=== PATIENT | male | born 1935 | race Caucasian/White ===

== ENCOUNTER 2016-05-20 22:41 | Inpatient (IN) ==
[~2016-05-20 22:41] MED LIST: Prochlorperazine 10 MG/2 ML VIAL IVP ONE
[2016-05-20] MEDS ORDERED: 0.9 % Sodium Chloride 1,000 ML IVC ONE (22:54)
[2016-05-20 23:24] LABS: Basophils % 0.1 %; Eosinophils % 0.1 %; Hematocrit 38.3 % (37.5-50.1); Immature Granulocytes % 0.7 % (0-4); Lymphocytes # 0.4 K/mcL (0.6-4.6); Mean Corpuscular HGB Conc 33.9 g/dL (31.6-35.5); Mean Corpuscular Hemoglobin 28.6 pg (28.0-33.3); Mean Corpuscular Volume 84.4 fL (83.0-100.0); Mean Platelet Volume 9.4 fL (9.4-12.4); Monocytes # 0.6 K/mcL (0.0-1.3); Monocytes % 7.3 %; Neutrophils # 7.3 K/mcL (1.6-8.9); Platelet Count 177 K/mcL (140-400); Red Blood Count 4.54 M/mcL (4.19-5.50); Red Cell Distribution Width 14.6 % (11.5-14.5); Segmented Neutrophils % 86.8 %
[2016-05-20 23:38] LABS: Calcium 9.9 mg/dL (8.6-10.8); Potassium 4.1 mEq/L (3.5-4.5)
--- NOTE | 2016-05-20 23:52 | Emergency Department Note ---
Disposition Clinical Impression: Drug-induced nausea and vomiting, Colon adenocarcinoma Disposition: Admitted As Inpatient Condition: Fair Time of Disposition: 02:26 Nausea/Vomiting/Diarrhea HPI - General Chief complaint: ED Nausea/Vomiting/Diarrhea Stated complaint: reaction to chemo Time Seen by Provider: 05/20/16 22:53 Source: patient Limitations: no limitations Nursing Notes Reviewed: Yes Vital Signs Reviewed: Yes - History of Present Illness Pt Subjective Complaint: nausea, vomiting Onset (ago): hour(s) Associated Abdominal Pain: No Consistency: constant Improves with: nothing Worsens with: nonthing Context: other (chemo treatment today h/o colon cancer) Associated symptoms: Reports: fever/chills, loss of appetite. Denies: cough, diaphoresis - Related Data Home Medications Medication Instructions Recorded Confirmed Amlodipine Besylate 10 mg PO DAILY 01/08/16 04/29/16 Atenolol [Tenormin] 25 mg PO DAILY 01/08/16 04/29/16 Furosemide [Lasix] 20 mg PO DAILY 01/08/16 04/29/16 Hydrochlorothiazide 25 mg PO DAILY 01/08/16 04/29/16 Lisinopril [Zestril] 20 mg PO DAILY 01/08/16 04/29/16 Aspirin 81 mg PO DAILY 03/26/16 04/29/16 Psyllium Husk/Calcium Carb 2 each PO DAILY 03/26/16 04/29/16 [Metamucil Plus Calcium Capsule] Rosuvastatin Calcium [Crestor] 10 mg PO DAILY 03/26/16 04/29/16 Ubidecarenone [Co Q-10] 100 mg PO DAILY 03/26/16 04/29/16 Previous Rx's Medication Instructions Recorded Docusate [Colace] 100 mg PO BID #30 capsule 04/01/16 Loperamide [Imodium] 2 mg PO Q4HR PRN #90 capsule 04/22/16 Ondansetron HCl [Zofran] 4 mg PO BID #60 tablet 04/22/16 Prochlorperazine Maleate 10 mg PO Q8HR PRN #90 tablet 04/22/16 [Compazine] Lidocaine/Prilocaine CREAM [Emla] 1 gm TP AD PRN #1 tube 04/29/16 Magic Mouthwash [Magic Mouthwash 10 ml PO QID PRN #240 ml 05/06/16 BLM] Lactulose 10 gm PO DAILY PRN #200 mls 05/13/16 Allergies Allergy/AdvReac Type Severity Reaction Status Date / Time simvastatin AdvReac Muscle Pain Verified 03/26/16 07:52 All systems ED: reviewed and negative except as stated. Constitutional: Reports: fever. Denies: chills Eyes: Denies: eye pain ENT ED: Denies: ear pain, throat pain Cardiovascular: Denies: chest pain, palpitations, dyspnea on exertion Respiratory: Denies: dyspnea Gastrointestinal: Reports: as per HPI. Denies: abdominal pain, diarrhea Genitourinary: Denies: dysuria Musculoskeletal: Denies: back pain Neurological: Denies: headache Psychiatric: Denies: anxiety Endocrine: Denies: fatigue Hematological/Lymphatic: Denies: easy bleeding Allergic/Immunologic: Denies: facial swelling Past Medical History - Past Medical History Medical history: Reports: cancer, hyperlipidemia, hypertension, other Surgical history: Reports: cancer surgery Psychiatric history: Reports: no psych history - Social History Smoking Status: Never smoker Smokeless Tobacco Status: No Alcohol use: Reports: none Drug use: Reports: none Physical Exam - General Limitations: no limitations General appearance: alert, in no apparent distress - Head Head exam: normocephalic - Eye Eye exam: Present: normal appearance, EOMI - ENT ENT exam: mucous membranes moist - Neck Neck exam: Present: normal inspection, full ROM - Chest Chest inspection: Present: normal inspection, symmetric chest wall rise - Respiratory Respiratory exam: Absent: respiratory distress - Cardiovascular Cardiovascular exam: Present: tachycardia - Abdominal Exam Abdominal exam: Present: soft, Non-Tender - Extremities Exam Extremities exam: Present: normal inspection, full ROM, normal capillary refill. Absent: tenderness - Back Exam Back exam: Present: full ROM - Neurological Exam Neurological exam: Present: alert, oriented X3 - Psychiatric Psychiatric exam: Present: normal affect, normal mood - Skin Skin exam: Present: warm, dry, intact, normal color. Absent: rash, cyanosis, diaphoresis Course Course Narrative: 81-year-old male with known history of colon cancer presents from home with reported fever, nausea, vomiting. He mentions he had received his second round of chemotherapy earlier today. He mentions he has not been feeling well since that time. No relief from his Zofran and other antinausea medications. He denies any chest pain, shortness of breath, abdominal pain. Vision seen and examined. He is in no acute distress does not look toxic. Workup initiated. Fluids and anti-medics ordered. - Reevaluation(s) Reevaluation #1: On reexamination patient states that his nausea has improved. Fluids ordered. Reevaluation #2: Discussed patient with hospitalist Dr. Reis, he agreed to accept patient. He also requested PCR influenza, and recommended vancomycin and Zosyn dosage. Time: 23:54 Vital Signs Temperature 100.6 F H 05/20/16 22:42 Pulse Rate 117 05/20/16 22:42 Respiratory Rate 20 05/20/16 22:42 Blood Pressure 160/69 05/20/16 22:42 O2 Sat by Pulse Oximetry 97 05/20/16 22:42 Temperature 98.8 F 05/21/16 04:10 Pulse Rate 87 05/21/16 04:10 Respiratory Rate 18 05/21/16 04:10 Blood Pressure 99/61 05/21/16 04:10 O2 Sat by Pulse Oximetry 93 L 05/21/16 04:10 Oxygen Delivery Oxygen Delivery Room Air Nausea/Vomiting/Diarrhea - MDM Narrative Medical decision making narrative: 81-year-old male with known history of colon cancer presents to the emergency department with fever and nausea and vomiting. He had received his second round of chemotherapy earlier today and stated his nausea and vomiting have not improved. On examination is initially uncomfortable, slightly tachycardic, denies any abdominal tenderness or diarrhea. Patient's symptoms did improve after fluids and antiemetics. Workup showed some decreased renal function, elevated lactic acid. Patient was discussed with attending Dr. Swanson, and agreed for decision to admit due to fever, chemotherapy, history of cancer. Patient accepted by hospitalist. - Medical Records Medical records reviewed: Yes I reviewed the patient's medical records. - Lab Data Lab results reviewed: Yes I reviewed the patient's lab results. Result diagrams: 05/21/16 04:45 05/21/16 04:45 Lab Results 05/20/16 05/20/16 05/20/16 Range/Units 23:16 23:16 23:16 WBC 8.4 (4.3-11.1) K/mcL RBC 4.54 (4.19-5.50) M/mcL Hgb 13.0 (12.9-16.9) g/dL Hct 38.3 (37.5-50.1) % MCV 84.4 (83.0-100.0) fL MCH 28.6 (28.0-33.3) pg MCHC 33.9 (31.6-35.5) g/dL RDW 14.6 H (11.5-14.5) % Plt Count 177 (140-400) K/mcL MPV 9.4 (9.4-12.4) fL Immature Gran % 0.7 (0-4) % Seg Neutrophils % 86.8 % Lymphocytes % 5.0 % Monocytes % 7.3 % Eosinophils % 0.1 % Basophils % 0.1 % Neutrophils # 7.3 (1.6-8.9) K/mcL Lymphocytes # 0.4 L (0.6-4.6) K/mcL Monocytes # 0.6 (0.0-1.3) K/mcL Eosinophils # 0.0 (0.0-0.6) K/mcL Basophils # 0.0 (0.0-0.2) K/mcL Sodium 134 L (136-145) mEq/L Potassium 4.1 (3.5-4.5) mEq/L Chloride 102 (98-109) mEq/L Carbon Dioxide 17 L (19-29) mEq/L BUN 31 H (8-26) mg/dL Creatinine 1.63 H (0.72-1.25) mg/dL Est GFR ( Amer) 50 L (> 60) Est GFR (Non-Af Amer) 41 L (> 60) BUN/Creatinine Ratio 19 (6-26) Glucose 144 H (70-99) mg/dL Calculated Osmolality 287 (280-300) Lactic Acid 3.4 H (0.5-2.2) mmol/L Calcium 9.9 (8.6-10.8) mg/dL Troponin I (0-0.03) ng/mL 05/20/16 Range/Units 23:16 WBC (4.3-11.1) K/mcL RBC (4.19-5.50) M/mcL Hgb (12.9-16.9) g/dL Hct (37.5-50.1) % MCV (83.0-100.0) fL MCH (28.0-33.3) pg MCHC (31.6-35.5) g/dL RDW (11.5-14.5) % Plt Count (140-400) K/mcL MPV (9.4-12.4) fL Immature Gran % (0-4) % Seg Neutrophils % % Lymphocytes % % Monocytes % % Eosinophils % % Basophils % % Neutrophils # (1.6-8.9) K/mcL Lymphocytes # (0.6-4.6) K/mcL Monocytes # (0.0-1.3) K/mcL Eosinophils # (0.0-0.6) K/mcL Basophils # (0.0-0.2) K/mcL Sodium (136-145) mEq/L Potassium (3.5-4.5) mEq/L Chloride (98-109) mEq/L Carbon Dioxide (19-29) mEq/L BUN (8-26) mg/dL Creatinine (0.72-1.25) mg/dL Est GFR ( Amer) (> 60) Est GFR (Non-Af Amer) (> 60) BUN/Creatinine Ratio (6-26) Glucose (70-99) mg/dL Calculated Osmolality (280-300) Lactic Acid (0.5-2.2) mmol/L Calcium (8.6-10.8) mg/dL Troponin I 0.00 (0-0.03) ng/mL Attestation Statement - Attestation Attestation: I, Eagle Swanson MD, personally performed a history and physical exam of the patient and discussed their management with the midlevel provicer, PAC/ARMORED MACHINE OPERATOR. I reviewed the midlevel provider's note and agree with the documented findings, medical decision making, and plan of care. 81-year-old male presents to the emergency department with a complaint of fever and nausea and vomiting and generalized weakness. Patient has a history of colon cancer and received chemotherapy earlier today. Since then he has had multiple episodes of vomiting. He states his temp at home was 103. He complains of some constipation which is a chronic problem. On examination patient is a well-developed obese elderly male in no acute distress. He is alert and oriented 3. There is no cyanosis or diaphoresis. Breath sounds are decreased but clear and equal bilaterally. Heart regular without tachycardia. Abdomen is soft with mild diffuse tenderness, worse in the right abdomen. Bowel sounds present. Labs reviewed. EKG shows a sinus tachycardia with a heart rate of 101, otherwise no acute changes. Chest x-ray negative. The hospitalist, Dr. Reis, was consulted and accepted admission of the patient.
[2016-05-20] MEDS ORDERED: Ondansetron 4 MG/2 ML VIAL IVP ONE (23:53)
[2016-05-20] MEDS ORDERED: Famotidine 20 MG/2 ML VIAL IVP ONE (23:59)
[2016-05-21] MEDS ORDERED: Piperacillin/Tazobactam 3.375 GM in D5% in Water (Mini-Bag+) 100 ML IVPB ONE (01:51)
[2016-05-21 03:05] LABS: Bilirubin,Urine Negative (Negative); Blood,Urine Negative (Negative); Clarity,Urine Clear (Clear); Color,Urine Yellow (Yellow); Glucose,Urine (UA) Normal (Normal); Ketones,Urine Negative (Negative); Leukocyte Esterase,Urine Negative (Negative); Nitrite,Urine Negative (Negative); PH,Urine 5.5 pH Units (5.0-8.0); Protein,Urine Negative (Neg-Trace); Specific Gravity,Urine 1.025 (1.010-1.025); Urobilinogen,Urine Normal (Normal)
--- NOTE | 2016-05-21 03:11 | Internal Med History&Physical ---
<Carina Morillo Grace - Last Filed: 05/21/16 05:26> Date of Encounter: 05/21/16 Time of Encounter: 03:01 Assessment and Plan (1) Chemotherapy induced nausea and vomiting Status: Acute Aggressive IVF hydration for treatment of dehydration Scopalamine TD Compazine, Zofran prn Hold Lasix (2) Fever of unknown origin (FUO) Status: Acute Lactic acid 3.4 ABG, pending WBC 8.4 Subjective fever of 103.5 at home yesterday afternoon, 100.6 in ED Rule out sepsis versus chemotherapy-induced fever -CXR no acute process -UA negative for infection -Blood cultures, pending Begin Vanc and Zosyn CT chest, abdomen, pelvis, pending (3) Acute renal failure Status: Acute Cr 1.63 at 23:00 increased from 1.48 at 09:30 Likely hemoconcentration due to nausea/vomiting-induced dehydration Continue to trend renal function Qualifiers: Acute renal failure type: unspecified Qualified Code(s): N17.9 - Acute kidney failure, unspecified (4) Dehydration Status: Acute Continue aggressive IVF Hold Lasix Anti-emetics prn (5) Constipation Status: Acute Continue home medication Qualifiers: Constipation type: unspecified constipation type Qualified Code(s): K59.00 - Constipation, unspecified (6) DVT prophylaxis Status: Acute Lovenox 40u SQ Internal Medicine - H&P: HPI Chief complaint: post-chemotherapy fever, tachycardia, nausea, vomiting Admitted From: Emergency Dept Plans for Post Hospital Care: Home History of present illness: Mr. Strauss is a 81 year old male who comes to hospital today accompanied by his with complaints of fever, chills, nausea, and vomiting. Patient states that he began feeling nauseated while receiving chemotherapy yesterday morning. When he returned home following infusion, he had 3 episodes of non- bilious vomiting. He later had 4-5 episodes of dry heaving. Patient tried compazine without relief of symptoms. He measured his temperature at 100.4 initially, but it continued to climb to 103.5. He had an episode of chills in which he put on multiple layers of clothing. He felt dizzy, weak, and had generalized malaise. He states that he would have fallen had it not been for his who was there to stabilize him. Admits dry mouth. Admits inability produce urine at this time. Admits 2 episodes of urinary incontinence, he explains, that were due to fact that he could not disrobe in time. Admits dysuria, frequency, strong stream, episodes of oligouria, nocturia x 4 times per night. Admits cough today productive of unknown color of phlegm. Admits constipation. Denies diaphoresis, hematemesis, chest pain, racing heart, palpitations, dyspnea , hematuria, muscle aches. Past Med Surg Social Fam HX - Past Medical History Medical history: cancer, hyperlipidemia, hypertension, other Psychiatric history: no psych history - Past Surgical History Surgical History: colectomy (Left hemicolectomy for colon cancer) - Social History Smoking Status: Never smoker Smokeless Tobacco Status: No Alcohol use: none Drug use: none - Family History Brother Hx Family Endocrine Disorder: Yes (DM) Internal Medicine - H&P: Meds Amlodipine Besylate 10 mg PO DAILY 01/08/16 [History] Atenolol [Tenormin] 25 mg PO DAILY 01/08/16 [History] Furosemide [Lasix] 20 mg PO DAILY 01/08/16 [History] Hydrochlorothiazide 25 mg PO DAILY 01/08/16 [History] Lisinopril [Zestril] 20 mg PO DAILY 01/08/16 [History] Rosuvastatin Calcium [Crestor] 10 mg PO DAILY 03/26/16 [History] Docusate [Colace] 100 mg PO BID #30 capsule 04/01/16 [Rx] Loperamide [Imodium] 2 mg PO Q4HR PRN #90 capsule 04/22/16 [Rx] Ondansetron HCl [Zofran] 4 mg PO BID #60 tablet 04/22/16 [Rx] Prochlorperazine Maleate [Compazine] 10 mg PO Q8HR PRN #90 tablet 04/22/16 [Rx] Lidocaine/Prilocaine CREAM [Emla] 1 gm TP AD PRN #1 tube 04/29/16 [Rx] Magic Mouthwash [Magic Mouthwash BLM] 10 ml PO QID PRN #240 ml 05/06/16 [Rx] Lactulose 10 gm PO DAILY PRN #200 mls 05/13/16 [Rx] Allergies atorvastatin [From Lipitor] Adverse Reaction (Verified 05/21/16 07:30) Muscle Pain simvastatin Adverse Reaction (Verified 03/26/16 07:52) Muscle Pain All Systems PM: A 10-system review of systems was performed and is negative for pertinent findings except as documented above in the HPI. - Constitutional Constitutional: chills, fatigue, fever(s), malaise, weakness - EENT Nose, mouth and throat: dry mouth, nasal congestion - Cardiovascular Cardiovascular ROS IM: no chest pain, no diaphoresis - Respiratory Respiratory: cough, no dyspnea - Gastrointestinal Gastrointestinal: abdominal pain (tenderness in LLQ), constipation (painful- described as hickory nut-sized stools connected together), nausea, vomiting, no hematemesis - Genitourinary Genitourinary ROS male: difficulty urinating, dysuria, nocturia, urinary incontinence, urinary urgency, no hematuria - Musculoskeletal Musculoskeletal ROS IM: back pain (chronic-he sleeps in lift chair at night to alleviate back pain), no myalgias - Constitutional Vitals: Temp Pulse Resp BP Pulse Ox 100.6 F H 117 20 160/69 97 05/20/16 22:42 05/20/16 22:42 05/20/16 22:42 05/20/16 22:42 05/20/16 22:42 General appearance: Present: cooperative, mild distress, A&O X 3, pleasant, answers questions appropriately - Head Head exam: Present: atraumatic, normal inspection, normocephalic - Eye Eye exam: Present: conjunctival injection, EOMI - Neck Neck exam general surgery: Present: full ROM - Respiratory Respiratory exam: Present: CTAB. Absent: rhonchi, wheezes - Cardiovascular Cardiovascular exam: Present: distant heart sounds, +S1, +S2, tachycardia ( regular rate) - GI/Abdominal GI/Abdominal exam: Present: normal bowel sounds, soft, tenderness (palpation RUQ ). Absent: guarding, hepatomegaly, rebound, splenomegaly, no peritoneal signs Additional comments: Sutton healing scar to mid-line abdomen (left hemicolectomy) - Extremities Exam Extremities exam: Present: normal capillary refill, normal inspection, pedal edema (1+ bilaterally), warm, radial pulses palpable and symetrical (bounding pulses bilaterally) - Neurological Exam Neurological exam: Present: CN II-XII intact - Psychiatric Psychiatric exam: Present: normal affect, normal mood - Skin Skin exam: Present: dry, erythema (to face), warm. Absent: diaphoretic Additional comments: port site to right chest without warmth, erythema, or tenderness Internal Med - H&P Results - Labs CBC & Chem 7: 05/20/16 23:16 05/20/16 23:16 - Impressions Chest X-Ray 05/21/16 01:16 IMPRESSION: 1. No focal airspace disease D/ / Eduard Malik MD / Eduard Malik MD Interpreting Provider: Eduard Malik MD <Audi Osborne - Last Filed: 05/27/16 23:33> Date of Encounter: 05/21/16 Internal Medicine - H&P: HPI History of present illness: Mr. Strauss is a 81 year old male admitted with chief complaint of post- chemotherapy associated fever of uncertain etiology and intractable nausea and vomiting. The patient was visited and interviewed and examined. I examined this patient and my medical decision-making was reviewed with the Resident Physician. For this encounter, I have reviewed the documentation, treatment plan, and medical decision making; and I have had face to face time with this patient. I agree with the documented findings, disposition and treatment plan as described except to the extent set forth below. Cumulative laboratory and radiographic database was reviewed and considered and discussed. Pertinent ancillary medical records including ECW and PCI documentation, when available was reviewed and considered. Given the patient's presenting concerns, past medical history, clinical findings and symptoms, he is admitted at this time to undergo further evaluation and disposition. Orders were written as per the computerized physician order booker system........................ All Systems PM: A 10-system review of systems was performed and is negative for pertinent findings except as documented above in the HPI. - Constitutional Vitals: Temp Pulse Resp BP Pulse Ox 98.2 F 46 18 114/63 95 05/22/16 11:03 05/22/16 11:03 05/22/16 11:03 05/22/16 11:03 05/22/16 11:03 Internal Med - H&P Results - Labs CBC & Chem 7: 05/21/16 04:45 05/22/16 03:57 - Impressions Laboratory Results WBC 7.5 K/mcL (4.3-11.1) 05/21/16 04:45 RBC 4.07 M/mcL (4.19-5.50) L 05/21/16 04:45 Hgb 11.5 g/dL (12.9-16.9) L D 05/21/16 04:45 Hct 35.0 % (37.5-50.1) L 05/21/16 04:45 MCV 86.0 fL (83.0-100.0) 05/21/16 04:45 MCH 28.3 pg (28.0-33.3) 05/21/16 04:45 MCHC 32.9 g/dL (31.6-35.5) 05/21/16 04:45 RDW 14.8 % (11.5-14.5) H 05/21/16 04:45 Plt Count 170 K/mcL (140-400) 05/21/16 04:45 MPV 9.8 fL (9.4-12.4) 05/21/16 04:45 Immature Gran % 0.7 % (0-4) 05/21/16 04:45 Seg Neutrophils % 84.3 % 05/21/16 04:45 Lymphocytes % 4.5 % 05/21/16 04:45 Monocytes % 9.4 % 05/21/16 04:45 Eosinophils % 0.8 % 05/21/16 04:45 Basophils % 0.3 % 05/21/16 04:45 Neutrophils # 6.3 K/mcL (1.6-8.9) 05/21/16 04:45 Lymphocytes # 0.3 K/mcL (0.6-4.6) L 05/21/16 04:45 Monocytes # 0.7 K/mcL (0.0-1.3) 05/21/16 04:45 Eosinophils # 0.1 K/mcL (0.0-0.6) 05/21/16 04:45 Basophils # 0.0 K/mcL (0.0-0.2) 05/21/16 04:45 PT 14.2 Seconds (9.4-12.1) H 05/21/16 04:45 INR 1.3 05/21/16 04:45 APTT 24.8 Seconds (26.0-36.0) L 05/21/16 04:45 ABG pH 7.48 pH Units (7.32-7.45) H 05/21/16 04:28 ABG pCO2 33 mmHg (35-45) L 05/21/16 04:28 ABG pO2 66 mmHg (85-104) L 05/21/16 04:28 ABG HCO3 24.6 mEQ/L (21-27) 05/21/16 04:28 ABG Total CO2 25.6 mEq/L (20-26) 05/21/16 04:28 ABG O2 Saturation 94 % (95-98) L 05/21/16 04:28 ABG Base Excess 1.4 mEq/L (-2.0 to 3.0) 05/21/16 04:28 Blood Gas Modality RA 05/21/16 04:28 Inspired O2 21 % 05/21/16 04:28 Sodium 137 mEq/L (136-145) 05/22/16 03:57 Potassium 3.9 mEq/L (3.5-4.5) 05/22/16 03:57 Chloride 107 mEq/L (98-109) 05/22/16 03:57 Carbon Dioxide 21 mEq/L (19-29) 05/22/16 03:57 BUN 25 mg/dL (8-26) 05/22/16 03:57 Creatinine 1.20 mg/dL (0.72-1.25) 05/22/16 03:57 Est GFR ( Amer) > 60 (> 60) 05/22/16 03:57 Est GFR (Non-Af Amer) 58 (> 60) L 05/22/16 03:57 BUN/Creatinine Ratio 21 (6-26) 05/22/16 03:57 Glucose 95 mg/dL (70-99) 05/22/16 03:57 Calculated Osmolality 288 (280-300) 05/22/16 03:57 Lactic Acid 3.4 mmol/L (0.5-2.2) H 05/20/16 23:16 Calcium 8.5 mg/dL (8.6-10.8) L 05/22/16 03:57 Phosphorus 3.3 mg/dL (2.3-4.7) 05/21/16 04:45 Magnesium 1.9 mg/dL (1.6-2.6) 05/21/16 04:45 Total Bilirubin 0.9 mg/dL (0.2-1.2) 05/21/16 04:45 AST 20 Units/L (5-34) 05/21/16 04:45 ALT 18 Units/L (0-55) 05/21/16 04:45 Alkaline Phosphatase 35 Units/L (38-126) L 05/21/16 04:45 Troponin I 0.01 ng/mL (0-0.03) 05/21/16 04:45 Serum Total Protein 6.7 g/dL (6.0-8.3) 05/21/16 04:45 Albumin 3.3 g/dL (3.5-5.0) L 05/21/16 04:45 Globulin 3.4 g/dL (2.4-3.5) 05/21/16 04:45 Albumin/Globulin Ratio 1.0 (1.1-2.2) L 05/21/16 04:45 Urine Color Yellow (Yellow) 05/21/16 02:50 Urine Clarity Clear (Clear) 05/21/16 02:50 Urine pH 5.5 pH Units (5.0-8.0) 05/21/16 02:50 Ur Specific [place] 1.025 (1.010-1.025) 05/21/16 02:50 Urine Protein Negative mg/dL (Neg-Trace) 05/21/16 02:50 Urine Glucose (UA) Normal mg/dL (Normal) 05/21/16 02:50 Urine Ketones Negative mg/dL (Negative) 05/21/16 02:50 Urine Blood Negative (Negative) 05/21/16 02:50 Urine Nitrite Negative (Negative) 05/21/16 02:50 Urine Bilirubin Negative (Negative) 05/21/16 02:50 Urine Urobilinogen Normal mg/dL (Normal) 05/21/16 02:50 Ur Leukocyte Esterase Negative (Negative) 05/21/16 02:50 Ur Culture Indicated? NO (NO) 05/21/16 02:50 Influ A (H1N1/09) PCR NOT DETECTED (Not Detect) 05/22/16 06:35 Influenza Type A (PCR) Negative (Negative) 05/22/16 06:35 Influenza Type B (PCR) Negative (Negative) 05/22/16 06:35 Impressions Chest X-Ray 05/21/16 01:16 IMPRESSION: 1. No focal airspace disease D/ / Eduard Malik MD / Eduard Malik MD Interpreting Provider: Eduard Malik MD Abdomen/Pelvis CT 05/21/16 05:09 IMPRESSION: No acute abnormality of the abdomen or pelvis. No findings to explain fever of unknown origin D/ / Richard Azul MD / Richard Azul MD Interpreting Provider: Richard Azul MD Chest CT 05/21/16 05:11 IMPRESSION: No acute abnormality of the chest, no findings to explain fever of unknown origin. Pulmonary nodules as discussed, which may be due to metastatic disease or multifocal granuloma formation. A follow-up CT of the chest is recommended D/ / Richard Azul MD / Richard Azul MD Interpreting Provider: Richard Azul MD Abnormal lab results RBC 4.07 M/mcL (4.19-5.50) L 05/21/16 04:45 Hgb 11.5 g/dL (12.9-16.9) L D 05/21/16 04:45 Hct 35.0 % (37.5-50.1) L 05/21/16 04:45 RDW 14.8 % (11.5-14.5) H 05/21/16 04:45 Lymphocytes # 0.3 K/mcL (0.6-4.6) L 05/21/16 04:45 PT 14.2 Seconds (9.4-12.1) H 05/21/16 04:45 APTT 24.8 Seconds (26.0-36.0) L 05/21/16 04:45 ABG pH 7.48 pH Units (7.32-7.45) H 05/21/16 04:28 ABG pCO2 33 mmHg (35-45) L 05/21/16 04:28 ABG pO2 66 mmHg (85-104) L 05/21/16 04:28 ABG O2 Saturation 94 % (95-98) L 05/21/16 04:28 Est GFR (Non-Af Amer) 58 (> 60) L 05/22/16 03:57 Lactic Acid 3.4 mmol/L (0.5-2.2) H 05/20/16 23:16 Calcium 8.5 mg/dL (8.6-10.8) L 05/22/16 03:57 Alkaline Phosphatase 35 Units/L (38-126) L 05/21/16 04:45 Albumin 3.3 g/dL (3.5-5.0) L 05/21/16 04:45 Albumin/Globulin Ratio 1.0 (1.1-2.2) L 05/21/16 04:45 - Attending Attestation My signature below is to certify that this patient is under my care and that I, or the Resident Physician working with me, has had a duet-ha-yebv encounter with this patient. Plan of care has been reviewed and discussed in detail with the patient and family. Questions addressed to his satisfaction and reassurance. Advance care directive discussion briefly addressed. The patient does not declare any healthcare restrictions at this time. Outpatient medications schedules will be reviewed, confirmed and facilitated as appropriate. Reconciliation of home treatments including adjustments, substitutions and reintroduction into the treatment regimen will address necessary maintenance therapies for chronic pre-existing medical conditions. Smoking cessation counseling briefly addressed. Patient declares himself a nonsmoker. Hospital course will be dependent on clinical findings, treatment response and potential consultative interventions. The patient is a clinical decline and morbidity given his presenting chief complaint, findings and associated comorbidities. Condition is serious. Prognosis is cautiously optimistic. CODE STATUS is full.
[2016-05-21] MEDS ORDERED: Naloxone 0.4 MG/ML INJ IVP PRN (03:39)
[2016-05-21 04:39] LABS: ABG Base Excess 1.4 mEq/L (-2.0 to 3.0); ABG HCO3 24.6 mEQ/L (21-27); ABG Oxygen Saturation 94 % (95-98); ABG PCO2 33 mmHg (35-45); ABG PH 7.48 pH Units (7.32-7.45); ABG PO2 66 mmHg (85-104); ABG TCO2 25.6 mEq/L (20-26)
[2016-05-21 04:41] LABS: Blood Gas FiO2 21 %
[2016-05-21] MEDS ORDERED: Lactulose Oral Soln 20 GM/30 ML UDC PO PRN (05:02)
[2016-05-21] MEDS ORDERED: Prochlorperazine 10 MG/2 ML VIAL IVP PRN (05:04)
[2016-05-21] MEDS: Acetaminophen 325 MG TABLET PO SCH ×6 (05:42→23:25)
[2016-05-21 05:57] LABS: INR 1.3; Prothrombin Time 14.2 Seconds (9.4-12.1)
[2016-05-21 05:58] LABS: Basophils % 0.3 %; Eosinophils # 0.1 K/mcL (0.0-0.6); Eosinophils % 0.8 %; Hemoglobin 11.5 g/dL (12.9-16.9); Immature Granulocytes % 0.7 % (0-4); Lymphocytes # 0.3 K/mcL (0.6-4.6); Lymphocytes % 4.5 %; Mean Corpuscular HGB Conc 32.9 g/dL (31.6-35.5); Mean Corpuscular Hemoglobin 28.3 pg (28.0-33.3); Mean Platelet Volume 9.8 fL (9.4-12.4); Monocytes # 0.7 K/mcL (0.0-1.3); Monocytes % 9.4 %; Neutrophils # 6.3 K/mcL (1.6-8.9); Platelet Count 170 K/mcL (140-400); Red Blood Count 4.07 M/mcL (4.19-5.50); Red Cell Distribution Width 14.8 % (11.5-14.5); Segmented Neutrophils % 84.3 %
[2016-05-21 06:00] LABS: Activated Partial Thrombo Time 24.8 Seconds (26.0-36.0)
[2016-05-21] MEDS ORDERED: Vancomycin 1,000 MG in D5% in Water 250 ML IVPB SCH (06:00)
[2016-05-21] MEDS: Vancomycin 1,750 MG in D5% in Water 500 ML IVPB SCH (06:01)
[2016-05-21] MEDS: *HR* Enoxaparin 40 MG/0.4 ML SYRINGE SQ SCH (06:07)
[2016-05-21] MEDS: 0.9 % Sodium Chloride 1,000 ML IVC SCH ×4 (06:08→23:59)
[2016-05-21 06:13] LABS: Albumin 3.3 g/dL (3.5-5.0); Bilirubin,Total 0.9 mg/dL (0.2-1.2); Globulin 3.4 g/dL (2.4-3.5); Magnesium 1.9 mg/dL (1.6-2.6); Phosphorous 3.3 mg/dL (2.3-4.7); Potassium 4.1 mEq/L (3.5-4.5); Total Protein 6.7 g/dL (6.0-8.3)
[2016-05-21] MEDS: Pantoprazole 40 MG VIAL IVP SCH (08:13)
[2016-05-21] MEDS: Fluticasone Propionate Nasal 50 MCG/SPRAY BOTTLE NS SCH (08:14)
[2016-05-21] MEDS: Psyllium 1 PACKET POWD.PACK PO SCH (08:14)
[2016-05-21] MEDS: Co Q-10 100 MG PO SCH (08:14)
[2016-05-21] MEDS ORDERED: Lisinopril 20 MG TABLET PO SCH (09:00)
[2016-05-21] MEDS ORDERED: hydroCHLOROthiazide 25 MG TABLET PO SCH (09:00)
[2016-05-21] MEDS: amLODIPine 5 MG TABLET PO SCH (10:13)
--- NOTE | 2016-05-21 10:33 | Electrocardiograph Report ---
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
--- NOTE | 2016-05-21 10:34 | Electrocardiograph Report ---
[address] [place] [address] Test Date: 2016-05-21 Pat Name: Alfonso Strauss Department: 113 Room: 3B22 Gender: [employer]: : [id number] Requested By: Order Number: [id number] Reading MD: Crispin Arceo MD Measurements Intervals [place] Rate: 61 P: 26 SC: 193 QRS: 19 QRSD: 110 T: 46 QT: 418 QTc: 422 Interpretive Statements SINUS RHYTHM Electronically Signed On 05-21-2016 10:32:22 EST by Crispin Arceo MD
--- NOTE | 2016-05-21 14:28 | Event Note ---
Date of Encounter: 05/21/16 Time of Encounter: 14:15 81 year old male with h/o- colon cancer, on Folfox treatment, was admitted with nausea, vomiting and high-grade fever after receiving 2nd cycle of chemotherapy yesterday. Workup for infectious process so far has been negative- UA not suggestive of UTI, chest XRay, CT chest/abdomen/pelvis negative for focal abscess, Pneumonia or any other acute process. Lactic acid slightly high; blood cultures pending. Patient seen and examined at bedside. Reports feeling better; improved nausea and vomiting, tolerated breakfast this morning; no fever spikes since last night; Awake, alert and oriented*3 Chest- S1, S2 heard; lungs are clear to auscultation; Abdomen- soft, nondistended, nontender Extremities- full ROM, no pedal edema Labs and imaging reviewed; no leukocytosis or neutropenia. CHERIE- could be prerenal due to GI losses or related to chemotherapy; Folfox has Oxaliplatin which could cause acute renal failure and nausea, vomiting; Noted to have worsening serum creatinine, currently at 1.7. Monitor closely; avoid new nephrotoxic agents; hold HCTZ, ACEI for now; Continue IV hydration, decrease the rate of normal saline. Fever- uncertain etiology. Patient could likely have a viral syndrome or symptoms secondary to Folfox chemotherapy; Continue broad-spectrum IV antibiotics until culture results are negative. Supportive care with PRN antiemetics and antipyretics. Paitent will be switched to inpatient at this time;
[2016-05-21] MEDS: Ondansetron 4 MG/2 ML VIAL IVP PRN (20:15)
[2016-05-22] MEDS: Acetaminophen 325 MG TABLET PO SCH ×2 (04:36→10:06)
[2016-05-22] MEDS: Vancomycin 1,750 MG in D5% in Water 500 ML IVPB SCH (04:47)
[2016-05-22 04:56] LABS: BUN/Creatinine Ratio 21 (6-26); Blood Urea Nitrogen 25 mg/dL (8-26); Calcium 8.5 mg/dL (8.6-10.8); Carbon Dioxide 21 mEq/L (19-29); Chloride 107 mEq/L (98-109); Glucose 95 mg/dL (70-99); Osmolality,Calculated 288 (280-300); Potassium 3.9 mEq/L (3.5-4.5); Sodium 137 mEq/L (136-145); eGFR For African Americans > 60 (> 60); eGFR For Non-African Americans 58 (> 60)
[2016-05-22] MEDS: Ondansetron 4 MG/2 ML VIAL IVP PRN (06:26)
[2016-05-22] MEDS: *HR* Enoxaparin 40 MG/0.4 ML SYRINGE SQ SCH (06:26)
[2016-05-22 08:06] LABS: 2009 H1N1 PCR NOT DETECTED (Not Detect); Influenza A PCR Negative (Negative); Influenza B PCR Negative (Negative)
[2016-05-22] MEDS: Co Q-10 100 MG PO SCH (10:09)
[2016-05-22] MEDS: amLODIPine 5 MG TABLET PO SCH (10:19)
[2016-05-22] MEDS: Fluticasone Propionate Nasal 50 MCG/SPRAY BOTTLE NS SCH (10:29)
[2016-05-22] MEDS: Pantoprazole 40 MG VIAL IVP SCH (10:30)
[2016-05-22] MEDS: 0.9 % Sodium Chloride 1,000 ML IVC SCH (10:30)
[2016-05-22] MEDS: Psyllium 1 PACKET POWD.PACK PO SCH (10:30)
[2016-05-22 11:07] VITALS: BP 114/63
--- NOTE | 2016-05-22 14:23 | Discharge Summary ---
Date of Encounter: 05/22/16 Time of Encounter: 14:21 - Discharge Diagnosis (1) CHERIE (acute kidney injury) Priority: Primary Status: Resolved (2) Fever Priority: Primary Status: Acute Qualifiers: Fever type: drug-induced Qualified Code(s): R50.2 - Drug induced fever (3) Essential hypertension Priority: Secondary Status: Chronic (4) Hyperlipidemia Priority: Secondary Status: Chronic Qualifiers: Hyperlipidemia type: mixed hyperlipidemia Qualified Code(s): E78.2 - Mixed hyperlipidemia (5) Diabetes Priority: Secondary Status: Chronic Qualifiers: Diabetes mellitus type: type 2 Diabetes mellitus complication status: without complication Diabetes mellitus fci insulin use: without terminal operator use Qualified Code(s): E11.9 - Type 2 diabetes mellitus without complications (6) Colon adenocarcinoma Priority: Secondary Status: Chronic (7) Drug-induced nausea and vomiting Priority: Primary Status: Resolved - Discharge Medications Home Medications: Amlodipine Besylate 10 mg PO DAILY 01/08/16 [History] Atenolol [Tenormin] 25 mg PO DAILY 01/08/16 [History] Furosemide [Lasix] 20 mg PO DAILY 01/08/16 [History] Hydrochlorothiazide 25 mg PO DAILY 01/08/16 [History] Lisinopril [Zestril] 20 mg PO DAILY 01/08/16 [History] Rosuvastatin Calcium [Crestor] 10 mg PO DAILY 03/26/16 [History] Docusate [Colace] 100 mg PO BID #30 capsule 04/01/16 [Rx] Loperamide [Imodium] 2 mg PO Q4HR PRN #90 capsule 04/22/16 [Rx] Ondansetron HCl [Zofran] 4 mg PO BID #60 tablet 04/22/16 [Rx] Prochlorperazine Maleate [Compazine] 10 mg PO Q8HR PRN #90 tablet 04/22/16 [Rx] Lidocaine/Prilocaine CREAM [Emla] 1 gm TP AD PRN #1 tube 04/29/16 [Rx] Magic Mouthwash [Magic Mouthwash BLM] 10 ml PO QID PRN #240 ml 05/06/16 [Rx] Lactulose 10 gm PO DAILY PRN #200 mls 05/13/16 [Rx] Allergies/Adverse Reactions: Allergies atorvastatin [From Lipitor] Adverse Reaction (Verified 05/21/16 07:30) Muscle Pain simvastatin Adverse Reaction (Verified 03/26/16 07:52) Muscle Pain Date of admission: 05/21/16 16:05 Primary care physician: Jessica Caldwell Discharging clinician: Alina Duran Anticipated date of discharge: 05/22/16 - Patient Status Disposition: Home Health Service Condition: Good Functional capacity at discharge: independent ambulation Overall status at discharge: patient is back to baseline - Discharge Instructions Follow Up With: Jessica Caldwell MD [Primary Care Provider] - 05/26/16 11:15 am Forms: Work/School Release Additional Instructions: F/up with Oncology/Chemotherapy as scheduled - Diet and Activity Activity: resume usual activities as tolerated Diet: diabetic diet, low fat, low cholesterol, low salt diet Hospital course: Mr. Strauss is a 81 year old male with history of colon cancer, on chemotherapy and was admitted with refractory nausea, vomiting and high-grade fever after receiving second cycle of chemotherapy with Folfox. He was noted to have acute kidney injury, likely prerenal due to GI losses from vomiting. He was started on aggressive IV hydration along with supportive care with when necessary antiemetics and antipyretics. He was started on broad-spectrum IV antibiotics due to underlying immunosuppression from chemotherapy. He had no leukopenia or neutropenia. Patient significantly improved with the above regimen and was able to tolerate oral diet, not noted to be in any distress. He had no recurrence of fever for more than 24 hours. Blood, urine and sputum cultures remain negative so far. Patient's symptoms are likely a reaction to chemotherapy, Oxaliplatin. He is currently medically stable for discharge with outpatient follow-up with oncology. - Time Spent with Patient Total time spent providing and/or coordinating discharge services: Greater than 30 minutes (45 min) - Constitutional Vitals: Temp Pulse Resp BP Pulse Ox 98.2 F 46 18 114/63 95 05/22/16 11:03 05/22/16 11:03 05/22/16 11:03 05/22/16 11:03 05/22/16 11:03 General appearance: Present: cooperative, A&O X 3, answers questions appropriately - Respiratory Respiratory exam: Present: CTAB. Absent: accessory muscle use, rales, rhonchi, wheezes - Cardiovascular Cardiovascular exam: Present: RRR, +S1, +S2. Absent: diastolic murmur, gallop, rubs, systolic murmur
[2016-05-22] MEDS ORDERED: Aminoglycoside Consult 1 EACH MC ONE (16:19)
== END 2016-05-22 16:20 | disposition home health service (06) | DRG 864 ==
LOC: EMEROO 22:41 → 3BNU 22:41 → SUATTDRO 05-21 02:29 → 3BNU 05-21 03:17
PROVIDERS: ADMIT Pediatrics; ATTEND Internal Medicine